=== PATIENT | female | born 1990 | race Caucasian/White ===

== ENCOUNTER 2021-08-27 10:54 | Day surgery (SDC) | payer BC ==
--- NOTE | 2021-08-27 10:23 | PCM.PREANE ---
Preanesthetic Assessment - Procedure Proposed Procedure: hysteroscopy- d and c - Anesthesia/Transfusion/Family Hx Anesthesia History: Prior Anesthesia Without Reaction Family History of Anesthesia Reaction: No Transfusion History: No Prior Transfusion(s) - Review of Systems General: No Symptoms Pulmonary: No Symptoms Cardiovascular: No Symptoms Gastrointestinal: No Symptoms Neurological: No Symptoms Other: Reports: None - Physical Assessment NPO Status Date: 08/26/21 NPO Status Time: 20:00 Vital Signs: 142/92 93 97% 16 98.3 Height: 5 ft 5 in Weight: 108 kg ASA Class: 3 Mental Status: Alert & Oriented x3 Airway Class: Mallampati = 2 Dentition: Reports: Normal Dentition Thyro-Mental Finger Breadths: 3 Mouth Opening Finger Breadths: 3 ROM/Head Extension: Full Lungs: Clear to Auscultation, Normal Respiratory Effort Cardiovascular: Regular Rate, Regular Rhythm - Allergies Allergies/Adverse Reactions: Allergies Allergy/AdvReac Type Severity Reaction Status Date / Time No Known Allergies Allergy Verified 08/26/21 12:43 - Blood Blood Available: No - Acknowledgements Anesthesia Type Planned: General Anesthesia, MAC Pt an Appropriate Candidate for the Planned Anesthesia: Yes Alternatives and Risks of Anesthesia Discussed w Pt/Guardian: Yes Pt/Guardian Understands and Agrees with Anesthesia Plan: Yes PreAnesthesia Questionnaire HEENT History: Reports: None Cardiovascular History: Reports: None Respiratory History: Reports: None Gastrointestinal History: Reports: None Genitourinary History: Reports: None [employer]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 , Other (See Below) Other OB/BYN History: anembryonic , ASCUS, IUD, menorrhagia, SAB Musculoskeletal History: Reports: Other (See Below) Other Musculoskeletal History: facial contusion Neurological History: Reports: None Psychiatric History: Reports: None Endocrine/Metabolic History: Reports: None Hematologic History: Reports: None Immunologic History: Reports: None Oncologic (Cancer) History: Reports: None Dermatologic History: Reports: None - Past Surgical History Head Surgeries/Procedures: Reports: None HEENT Surgical History: Reports: Tonsillectomy Cardiovascular Surgical History: Reports: None Respiratory Surgical History: Reports: None GI Surgical History: Reports: None Female Surgical History: Reports: None Male Surgical History: Reports: None Endocrine Surgical History: Reports: None Neurological Surgical History: Reports: None Musculoskeletal Surgical History: Reports: None Oncologic Surgical History: Reports: None Dermatological Surgical History: Reports: None - SUBSTANCE USE Tobacco Use Status *Q: Never Tobacco User Tobacco Use Within Last Twelve Months: No Second Hand Smoke Exposure: No Days Per Week of Alcohol Use: 0 Recreational Drug Use History: No - HOME MEDS Home Medications: Home Meds Cholecalciferol (Vitamin D3) [Vitamin D3] 1,000 unit PO DAILY 08/26/21 [History] Fish Oil/Trinity-3 Fatty Acids [Fish Oil 1,000 MG] 1 gm PO DAILY 08/26/21 [History] Vits #93/Iron Fum/FA [ Formula Tablet] 1 tab PO DAILY 08/26/21 [History] - CURRENT (IN HOUSE) MEDS Current Meds: Current Medications Doxycycline Hyclate (Doxycycline 100 Mg Cap) 200 mg PO ONETIME MONY Lactated Ringer's (Ringers, Lactated) 1,000 mls @ 125 mls/hr IV ASDIRECTED MONY Lidocaine/Sodium Bicarbonate (Lidocaine 1%/Sod Bicarbonate In Ns 8.4% 1 Ml Syringe) 0.25 ml IDERM ONETIME PRN PRN Reason: Prior to IV Start Sodium Chloride (Sodium Chloride 0.9% 10 Ml Syringe) 10 ml FLUSH 0900,2100 MONY Discontinued Medications Cefazolin Sodium (Cefazolin 1 Gm Vial) Confirm Administered Dose 2 gm .ROUTE .STK-MED ONE Stop: 08/27/21 10:10 Dexamethasone (Dexamethasone 4 Mg/Ml 5 Ml Mdv) Confirm Administered Dose 20 mg .ROUTE .STK-MED ONE Stop: 08/27/21 10:09 Fentanyl (Fentanyl 250 Mcg/5 Ml Sdv) Confirm Administered Dose 250 mcg .ROUTE .STK-MED ONE Stop: 08/27/21 10:07 Lidocaine HCl (Xylocaine-Mpf 1%) Confirm Administered Dose 4 mls @ as directed .ROUTE .STK-MED ONE Stop: 08/27/21 10:13 Ketorolac Tromethamine (Ketorolac 30 Mg/Ml Sdv) Confirm Administered Dose 30 mg .ROUTE .STK-MED ONE Stop: 08/27/21 10:10 Midazolam HCl (Midazolam 1 Mg/Ml 2 Ml Sdv) Confirm Administered Dose 2 mg .ROUTE .STK-MED ONE Stop: 08/27/21 10:07 Ondansetron HCl (Ondansetron 4 Mg/2 Ml Sdv) Confirm Administered Dose 4 mg .ROUTE .STK-MED ONE Stop: 08/27/21 10:09 Propofol (Propofol 200 Mg/20 Ml Sdv) Confirm Administered Dose 200 mg .ROUTE .STK-MED ONE Stop: 08/27/21 10:13
[~2021-08-27 10:54] MED LIST: Dexamethasone 4 MG/ML 5 ML MDV ONE; Doxycycline 100 MG Cap PO SCH; Ketorolac 30 MG/ML SDV ONE; Lactated Ringers 1,000 ML IV SCH; Lidocaine 1% 4 ML ONE; Lidocaine 1%/Sod Bicarbonate in NS 8.4% 1 ML Syringe IDERM PRN; Midazolam 1 MG/ML 2 ML SDV ONE; Ondansetron 4 MG/2 ML SDV ONE; Propofol 200 MG/20 ML SDV ONE; Sodium Chloride 0.9% 10 ML Syringe FLUSH SCH; ceFAZolin 1 GM Vial ONE; fentaNYL 250 MCG/5 ML SDV ONE
[2021-08-27] MEDS ORDERED: HYDROmorphone 0.5 MG/0.5 ML Syringe IVPUSH PRN (13:02)
[2021-08-27] MEDS ORDERED: fentaNYL 100 MCG/2 ML SDV IVPUSH PRN (13:02)
[2021-08-27] MEDS ORDERED: Ondansetron 4 MG/2 ML SDV IVPUSH PRN (13:02)
--- NOTE | 2021-08-27 13:05 | PCM.OPNOTE ---
- General Post-Op/Procedure Note Date of Surgery/Procedure: 08/27/21 Operative Procedure(s): Hysteroscopy with suction dilation and curettage Findings: Bilateral tubal ostia noted. Posterior and lateral sides of the uterine concepcion normal in appearance. Anterior uterine wall with noted products of conception tissue adherent to the uterine wall. After several passes with the suction curette there was no significant tissue noted on the anterior uterine wall. Pre Op Diagnosis: Incomplete Post-Op Diagnosis: Same status post suction dilation and curettage with hysteroscopy Anesthesia Technique: General LMA Primary Surgeon: Zach Conti Anesthesia Provider: Esme Francisco Pathology: Products of conception Fluid Replacement, Intraop: 1,500 Output, Urine Amount: 0 (Voided prior to procedure) EBL in mLs: 50 Complications: None Condition: Good Free Text/Narrative:: Procedure in Detail: Patient was counseled on risks, benefits and alternatives of the procedure and consents were reviewed prior to going back to the OR. She was given 100 mg of doxycycline for antibiotic prophylaxis. She was taken back to the OR and given general anesthesia with laryngeal mask airway that was placed without difficulty. She was placed in dorsal lithotomy position using yellowfin stirrups. She was prepped and draped in a normal sterile fashion. A weighted sterile speculum was placed in the vagina and the cervix was visualized. The anterior lip of the cervix was grasped with a single-tooth tenaculum. The cervix was serially dilated to a 15 [place] dilator. A hysteroscope was then in serted into the uterine cavity and the uterine cavity was evaluated for any areas with possible retained products of conception. The lateral uterine sidewalls and posterior uterine wall were normal in appearance. On the anterior wall of the uterus there was noted to be adherent products of conception tissue and this was felt to be the portion of the incomplete . The cervix was then dilated to a 17 [place] dilator to allow for the rigid suction curette to be passed through the cervix. The vacuum was tested and reached an appropriate suction level. A 7 mm suction curettage was then placed into the uterine cavity and suction applied. The uterine cavity was suctioned circumferentially until a good cri was felt in all directions. The tissue that was removed was sent to pathology. The hysteroscope was then reinserted and the anterior uterine wall was inspected and noted to have a small amount of additional tissue that appeared to be products of conception. The 7 mm suction curette was passed through the cervix and good tree was again felt in all directions. The hysteroscope was then reinserted and the anterior wall was inspected and noted to be free of any additional retained products of conception tissue at this time. The procedure was complete at this time and the tenaculum was removed from the cervix and good hemostasis was noted from the tenaculum sites. All instruments were removed from the vagina. All needle and sponge counts were correct x 2. The patient was awoken and taken back to the recovery room in stable condition. The patient will be discharged home when she is ambulating, tolerating PO, pain is well controlled with PO medications and she is voiding normally. She will follow up in the clinic within the next 2-3 weeks. She was given strict precautions to return if she is having severe vaginal bleeding of more than 1 pad per hour for three hours, uncontrollable pain/nausea/vomiting or if she is having a fever greater than 100.4 FMckenzie Conti MD 1:04 PM 08/27/2021
--- NOTE | 2021-08-27 13:05 | PCM.POSTAN ---
POST ANESTHESIA ASSESSMENT - MENTAL STATUS Mental Status: Alert - VITAL SIGNS Vital Signs: Last Vital Signs 1252 141/80 97% 3 L 102 HR 16 98.0 Temp 36.8 C 08/27/21 09:55 Pulse 93 08/27/21 09:55 Resp 16 08/27/21 09:55 BP 142/92 H 08/27/21 09:55 Pulse Ox 97 08/27/21 09:55 - RESPIRATORY Respiratory Status: Respiratory Rate WNL, Airway Patent, O2 Saturation Stable, Supplemental Oxygen - CARDIOVASCULAR CV Status: Pulse Rate WNL, Elevated Pulse Rate - GASTROINTESTINAL GI Status: No Symptoms - PAIN Pain Score: 0 - POST OP HYDRATION Hydration Status: Adequate & Stable
[2021-08-27] MEDS ORDERED: Scopolamine 1.5 MG Transdermal Patch TRDERM ONE (13:30)
--- NOTE | 2021-08-27 13:34 | PCM48HPAN ---
Post Anesthesia Note - EVALUATION WITHIN 48HRS OF ANESTHETIC Vital Signs in Normal Range: Yes Patient Participated in Evaluation: Yes Respiratory Function Stable: Yes Airway Patent: Yes Cardiovascular Function Stable: Yes Hydration Status Stable: Yes Pain Control Satisfactory: Yes Nausea and Vomiting Control Satisfactory: Yes Mental Status Recovered: Yes Vital Signs: Last Vital Signs Temp 36.7 C 08/27/21 13:05 Pulse 92 08/27/21 13:05 Resp 15 08/27/21 13:05 BP 134/74 08/27/21 13:05 Pulse Ox 98 08/27/21 13:05
== END 2021-08-27 14:35 | disposition home or self-care (01) ==
LOC: JD.SDS 10:54
PROVIDERS: ATTEND Obstetrics & Gynecology
DX: O03.4 Incomplete spontaneous abortion without complication (principal); Z79.899 Other long term (current) drug therapy; Z98.890 Other specified postprocedural states
CPT/HCPCS: 58558; A9270; J0690; J1100; J1885; J2250; J2405; J2704; J3010; J7120; 00952

== ENCOUNTER 2022-01-29 06:41 | Day surgery (SDC) | payer BC ==
[~2022-01-29 06:41] MED LIST changes: -Dexamethasone 4 MG/ML 5 ML MDV ONE; -Doxycycline 100 MG Cap PO SCH; -Ketorolac 30 MG/ML SDV ONE; -Lidocaine 1% 4 ML ONE; +Lidocaine 1% 5 ML VIAL ONE; -Ondansetron 4 MG/2 ML SDV ONE; +Sodium Chloride 0.9% 10 ML Syringe FLUSH PRN; -ceFAZolin 1 GM Vial ONE; +fentaNYL 100 MCG/2 ML SDV ONE; -fentaNYL 250 MCG/5 ML SDV ONE
[2022-01-29] MEDS ORDERED: Ondansetron 4 MG/2 ML SDV IVPUSH PRN ×2 (07:19→08:26)
[2022-01-29] MEDS ORDERED: fentaNYL 100 MCG/2 ML SDV IVPUSH PRN (07:19)
[2022-01-29] MEDS ORDERED: HYDROmorphone 0.5 MG/0.5 ML Syringe IVPUSH PRN (07:19)
[2022-01-29] MEDS ORDERED: Dexamethasone 4 MG/ML 5 ML MDV ONE (08:00)
[2022-01-29] MEDS ORDERED: Ketorolac 30 MG/ML SDV ONE (08:00)
[2022-01-29] MEDS ORDERED: Ondansetron 4 MG/2 ML SDV ONE (08:00)
[2022-01-29] MEDS ORDERED: Ibuprofen 600 MG Tab PO PRN (08:26)
[2022-01-29] MEDS ORDERED: Acetaminophen/oxyCODONE 325-5 MG Tab PO SCH (08:46)
== END 2022-01-29 09:30 | disposition home or self-care (01) ==
LOC: JD.SDS 06:41
PROVIDERS: ATTEND Obstetrics & Gynecology
DX: O02.1 Missed abortion (principal); Z98.890 Other specified postprocedural states; Z97.5 Presence of (intrauterine) contraceptive device
CPT/HCPCS: 36415; 59812; 85025; 88305; A9270; J1100; J1885; J2250; J2405; J2704; J3010; J7120

== ENCOUNTER 2022-05-14 11:03 | Day surgery (SDC) | payer BC ==
[~2022-05-14 11:03] MED LIST changes: -Lidocaine 1% 5 ML VIAL ONE; -Midazolam 1 MG/ML 2 ML SDV ONE; -Propofol 200 MG/20 ML SDV ONE; -Sodium Chloride 0.9% 10 ML Syringe FLUSH SCH; -fentaNYL 100 MCG/2 ML SDV ONE
[2022-05-14] MEDS ORDERED: Methylene Blue 50 MG/10 ML Ampule ONE (11:05)
[2022-05-14] MEDS ORDERED: Bupivacaine 0.5% 10 ML SDV ONE (11:06)
[2022-05-14] MEDS ORDERED: Dextrose 5% in Water 100 ML ONE (11:43)
[2022-05-14] MEDS ORDERED: Ondansetron 4 MG/2 ML SDV IVPUSH PRN ×2 (11:56→15:02)
[2022-05-14] MEDS: fentaNYL 100 MCG/2 ML SDV IVPUSH PRN ×2 (13:50→14:24)
[2022-05-14] MEDS: HYDROmorphone 0.5 MG/0.5 ML Syringe IVPUSH PRN ×2 (14:00→14:11)
[2022-05-14] MEDS ORDERED: Acetaminophen/oxyCODONE 325-5 MG Tab PO PRN (15:02)
== END 2022-05-14 16:35 | disposition home or self-care (01) ==
LOC: JD.SDS 11:03
PROVIDERS: ATTEND Obstetrics & Gynecology
DX: N85.8 Other specified noninflammatory disorders of uterus (principal); E66.9 Obesity, unspecified; Z79.899 Other long term (current) drug therapy; Z98.890 Other specified postprocedural states
CPT/HCPCS: 58350; 58558; 81025; J1170; J3010; J3490; J7120; 00952

== ENCOUNTER 2022-12-07 19:18 | Emergency (ER) | payer BC ==
[2022-12-07] MEDS ORDERED: Iopamidol 755 Mg/ML 100 ML Bottle IVPUSH ONE (21:18)
[2022-12-07] MEDS ORDERED: Sodium Chloride 0.9% 100 ML IV SCH (21:30)
[2022-12-07] MEDS ORDERED: Sodium Chloride 0.9% 1,000 ML IV ONE (22:20)
[2022-12-07] MEDS ORDERED: Albuterol 6.7 GM Inhaler INH ONE (23:26)
== END 2022-12-07 23:52 | disposition home or self-care (01) ==
LOC: JD.ED 19:18
DX: J45.909 Unspecified asthma, uncomplicated (principal); E66.9 Obesity, unspecified; Z68.42 Body mass index [BMI] 45.0-49.9, adult
CPT/HCPCS: 36415; 71045; 71275; 80053; 83880; 84484; 84703; 85025; 85379; 85610; 85730; 86140; 93005; 94640; 99285; A9270; J3490; J7030; Q9967; 93010; 99284

== ENCOUNTER 2025-02-20 15:00 | Emergency (ER) | payer BC ==
[2025-02-20] MEDS ORDERED: Sodium Chloride 0.9% 10 ML Syringe FLUSH PRN (15:37)
[2025-02-20 16:35] LABS: BASOPHILS ABSOLUTE AUTO 0.1 K/mm3 (0.0-0.2); BASOPHILS PERCENT AUTO 0.5 % (0.0-1.0); EOSINOPHILS ABSOLUTE AUTO 0.2 K/mm3 (0.0-0.4); EOSINOPHILS PERCENT AUTO 1.6 % (0.0-6.0); HEMOGLOBIN 13.7 gm/dl (12.0-16.0); IMMATURE GRAN ABSOLUTE AUTO 0.04 K/mm3 (0.00-0.05); IMMATURE GRAN PERCENT AUTO 0.4 % (0.0-0.4); LYMPHOCYTES ABSOLUTE AUTO 2.7 K/mm3 (1.0-4.8); MEAN CORPUSCULAR HEMOGLOBIN 27.1 pg (28.0-32.0); MEAN CORPUSCULAR HGB CONC 33.4 g/dl (32.0-36.0); MEAN PLATELET VOLUME 9.6 fl (9.4-12.3); MONOCYTES ABSOLUTE AUTO 0.7 K/mm3 (0.0-0.8); MONOCYTES PERCENT AUTO 6.4 % (0.0-8.0); NEUTROPHILS ABSOLUTE AUTO 7.5 K/mm3 (1.8-7.7); NEUTROPHILS PERCENT AUTO 67.1 % (41.0-71.0); PLATELET COUNT,PLT 352 K/mm3 (150-400); RED BLOOD CELL COUNT 5.06 M/mm3 (4.10-5.30); WHITE BLOOD CELL COUNT,WBC 11.21 K/mm3 (3.9-11.3)
[2025-02-20 16:55] LABS: INR 0.97; PROTHROMBIN TIME 10.3 SECONDS (9.7-12.0)
[2025-02-20 16:56] LABS: A/G RATIO 0.9 (1-2); ALBUMIN 3.4 g/dl (3.4-5.0); ANION GAP 16.6 (5-15); BILIRUBIN TOTAL 0.2 mg/dL (0.2-1.0); BUN/CREATININE RATIO 15.7 (14-18); CALCIUM 9.5 mg/dL (8.5-10.1); CREATININE 0.7 mg/dL (0.55-1.02); EST CRCL DRUG DOSING (CG) 95.02 mL/min; POTASSIUM,K 3.6 mEq/L (3.5-5.1); PROTEIN TOTAL,TP 7.2 g/dl (6.4-8.2)
[2025-02-20 16:57] LABS: PTT,PARTIAL THROMBOPLSTIN TIME 25.4 SECONDS (21.7-31.4)
== END 2025-02-20 18:27 | disposition home or self-care (01) ==
LOC: JD.ED 15:00
DX: N93.9 Abnormal uterine and vaginal bleeding, unspecified (principal); I10 Essential (primary) hypertension; Z79.899 Other long term (current) drug therapy
CPT/HCPCS: 36415; 76830; 76830-26; 80053; 84703; 85025; 85610; 85730; 99284